=== PATIENT | female | born 1980 | race Caucasian/White ===

== ENCOUNTER 2018-10-02 22:24 | Emergency (ER) | payer MEDICAID ==
[~2018-10-02] VITALS: Ht 157.5 cm; Wt 159.8 kg
[2018-10-02] MEDS ORDERED: DOXY100C2 PO (23:19)
[2018-10-02] MEDS ORDERED: doxycycline hyclate 100mg tablet.DR PO STA (23:20)
[2018-10-02 23:29] VITALS: BP 148/97
== END 2018-10-03 00:56 | disposition home or self-care (01) ==
LOC: ER 22:25
DX: L03.116 Cellulitis of left lower limb (principal); L03.115 Cellulitis of right lower limb
CPT/HCPCS: 99283